=== PATIENT | female | born 1995 | race African-American/Black ===

== ENCOUNTER 2020-02-22 16:50 | Emergency (ER) | payer MEDICAID, SELFPAY ==
[2020-02-22 17:52] LABS: Bilirubin Negative (Negative); Blood, Urine Negative (Negative); Clarity Turbid (Clear); Glucose, Urine (Dipstick) 150 mg/dL (Negative); Ketone, Urine Trace mg/dL (Negative); Leukocyte 75 Leu/uL (Negative); Nitrite Negative (Negative); Protein, Urine (Dipstick) 10 mg/dL (Neg-Trace); RBC/HPF 0-3 HPF (0-3); Specific Gravity, Urine 1.027 (1.002-1.036); Squamous Epithelial 21-50 HPF (0-3); WBC/HPF 0-3 HPF (0-3); pH, Urine 6.5 (5.0-9.0)
[2020-02-22] MEDS ORDERED: Azithromycin 250 MG TAB ONE (17:59)
[2020-02-22] MEDS ORDERED: cefTRIAXone\\ROCEPHIN 250 MG VIAL ONE (17:59)
[2020-02-22] MEDS ORDERED: Lidocaine 1% PF 5 ML VIAL ONE (17:59)
[2020-02-22 18:09] LABS: Bacteria/HPF 2+ HPF (None Seen)
== END 2020-02-22 18:53 | disposition home or self-care (01) ==
LOC: ERS 16:50
DX: O23.41 Unspecified infection of urinary tract in pregnancy, first trimester (principal); O99.511 Diseases of the respiratory system complicating pregnancy, first trimester; J45.909 Unspecified asthma, uncomplicated
CPT/HCPCS: 81003; 81015; 87491; 87591; 96372; J0696

== ENCOUNTER 2021-12-27 20:51 | Emergency (ER) | payer OTHER ==
[2021-12-27] MEDS ORDERED: Fluorescein Opthalmic Strip ONE (21:41)
[2021-12-27] MEDS ORDERED: Proparacaine 0.5% Opth 15 ML BOT ONE ×2 (21:41→23:32)
== END 2021-12-27 23:42 | disposition home or self-care (01) ==
LOC: ERS 20:51
DX: H16.201 Unspecified keratoconjunctivitis, right eye (principal); N89.8 Other specified noninflammatory disorders of vagina
CPT/HCPCS: 99283

== ENCOUNTER 2023-02-11 18:20 | Emergency (ER) | payer OTHER, SELFPAY ==
[2023-02-11] MEDS ORDERED: Ipratropium/Albuterol 3 ML NEB ONE (18:51)
[2023-02-11] MEDS ORDERED: predniSONE 20 MG TAB ONE (18:55)
== END 2023-02-11 19:46 | disposition home or self-care (01) ==
LOC: ERS 18:20
DX: R05.9 Cough, unspecified (principal)
CPT/HCPCS: 71046; 94640; J7512; J7620

== ENCOUNTER 2023-03-20 00:23 | Emergency (ER) | payer SELFPAY ==
[2023-03-20] MEDS ORDERED: Ketorolac Tromethamine 30 MG (1 mL) VIAL ONE (01:23)
== END 2023-03-20 03:33 | disposition home or self-care (01) ==
LOC: ERS 00:23
DX: S83.92XA Sprain of unspecified site of left knee, initial encounter (principal); Z87.891 Personal history of nicotine dependence; X58.XXXA Exposure to other specified factors, initial encounter
CPT/HCPCS: 96372; J1885

== ENCOUNTER 2023-08-09 03:56 | Inpatient (IN) | payer SELFPAY ==
[2023-08-09 04:55] LABS: #Basophils 0.03 10x3/uL (0.0-0.2); %Basophils 0.2 % (0.0-1.0); %Eosinophils 0.8 % (0.0-10.0); %Lymphocytes 28.6 % (21.0-51.0); %Monocytes 10.2 % (0.0-10.0); Hemoglobin 14.9 g/dL (12.0-16.0); Mean Corpuscular HGB CONC 34.7 g/dL (32.0-36.0); Mean Corpuscular Hemoglobin 30.4 pg (27.0-31.0); Mean Corpuscular Volume 87.8 fL (78.0-98.0); Mean Platelet Volume 10.6 fL (7.4-10.4); Platelet Count 334 10x3/uL (130-400); RBC Distribution Width 12.9 % (11.5-14.5)
[2023-08-09 05:09] LABS: ALT (SGPT) 8 U/L (8-55); AST (SGOT) 12 U/L (5-34); Alkaline Phosphatase 53 U/L (40-110); Anion Gap 17 mmol/L (10-20); BUN (Urea Nitrogen) 8 mg/dL (7.0-18.7); Bilirubin, Total 0.8 mg/dL (0.2-1.2); Calc. Creatinine Clearance 0 mL/min (70-130); Calcium 10.1 mg/dL (7.8-10.44); Carbon Dioxide 25 mmol/L (22-29); Chloride 99 mmol/L (98-107); Estimated GFR 71; Globulin 3.9 g/dL (2.4-3.5); Glucose 96 mg/dL (70-105); Potassium 2.5 mmol/L (3.5-5.1); Protein, Total 7.9 g/dL (6.0-8.3); Sodium 138 mmol/L (136-145)
[2023-08-09] MEDS ORDERED: Potassium Chloride 20 MEQ TAB ONE (08:03)
[2023-08-09] MEDS ORDERED: HYDROcodone/Acetaminophen 10/325 mg Tablet ONE (09:07)
[2023-08-09 09:22] LABS: CRP,High Sensitivity (Inhouse) 2.44 mg/dL (< or = 0.5); Magnesium 1.9 mg/dL (1.6-2.6)
[2023-08-09] MEDS ORDERED: Magnesium 2 GM/50 ML BAG (IN WATER) ONE (09:28)
[2023-08-09 09:30] LABS: Troponin I Less than 0.010 ng/mL (< 0.028)
[2023-08-09 10:51] LABS: ALT (SGPT) 6 U/L (8-55); AST (SGOT) 14 U/L (5-34); Albumin 3.8 g/dL (3.5-5.0); Alkaline Phosphatase 51 U/L (40-110); Anion Gap 17 mmol/L (10-20); BUN (Urea Nitrogen) 10 mg/dL (7.0-18.7); Bilirubin, Total 0.6 mg/dL (0.2-1.2); Calc. Creatinine Clearance 0 mL/min (70-130); Calcium 9.6 mg/dL (7.8-10.44); Carbon Dioxide 22 mmol/L (22-29); Chloride 99 mmol/L (98-107); Estimated GFR 92; Globulin 3.8 g/dL (2.4-3.5); Glucose 94 mg/dL (70-105); Phosphorus 4.7 mg/dL (2.3-4.7); Potassium 2.9 mmol/L (3.5-5.1); Protein, Total 7.6 g/dL (6.0-8.3); Sodium 135 mmol/L (136-145)
[2023-08-09 12:29] LABS: Anion Gap 13 mmol/L (10-20); BUN (Urea Nitrogen) 9 mg/dL (7.0-18.7); Calc. Creatinine Clearance 0 mL/min (70-130); Calcium 9.7 mg/dL (7.8-10.44); Carbon Dioxide 30 mmol/L (22-29); Chloride 98 mmol/L (98-107); Estimated GFR 80; Glucose 87 mg/dL (70-105); Sodium 138 mmol/L (136-145)
[2023-08-09] MEDS ORDERED: Lidocaine 1% PF 5 ML VIAL ONE (13:07)
[2023-08-09] MEDS ORDERED: Ondansetron PF 4 MG/2 ML Vial IVP PRN (13:31)
[2023-08-09] MEDS ORDERED: Ondansetron ODT 4 MG TAB PO PRN (13:31)
[2023-08-09] MEDS: Magnesium 2 GM/50 ML(in water) 2 GM in Premix 1 BAG IVPB SCH (15:49)
[2023-08-09 15:53] VITALS: BMI 33.5
[2023-08-09] MEDS: Potassium Chloride 20 MEQ TAB PO SCH (16:19)
[2023-08-09] MEDS: Acetaminophen 325 MG TAB PO PRN (16:20)
[2023-08-09] MEDS: Heparin 5,000 UNITS/ML VIAL SC SCH (16:26)
[2023-08-09] MEDS: Famotidine 20 MG TAB PO SCH (21:03)
[2023-08-10 04:30] LABS: #Basophils 0.03 10x3/uL (0.0-0.2); %Basophils 0.3 % (0.0-1.0); %Lymphocytes 24.1 % (21.0-51.0); %Monocytes 9.3 % (0.0-10.0); %Neutrophils 63.8 % (42.0-75.0); Hematocrit 42.6 % (36.0-47.0); Hemoglobin 14.7 g/dL (12.0-16.0); Mean Corpuscular HGB CONC 34.5 g/dL (32.0-36.0); Mean Corpuscular Hemoglobin 30.8 pg (27.0-31.0); Mean Corpuscular Volume 89.3 fL (78.0-98.0); Mean Platelet Volume 10.1 fL (7.4-10.4); Platelet Count 323 10x3/uL (130-400); Red Blood Cell (RBC) Count 4.77 mill/uL (4.20-5.40)
[2023-08-10 04:47] LABS: Anion Gap 10 mmol/L (10-20); BUN (Urea Nitrogen) 11 mg/dL (7.0-18.7); Calc. Creatinine Clearance 130 mL/min (70-130); Calcium 9.5 mg/dL (7.8-10.44); Carbon Dioxide 27 mmol/L (22-29); Chloride 100 mmol/L (98-107); Estimated GFR 84; Glucose 99 mg/dL (70-105); Potassium 3.3 mmol/L (3.5-5.1); Sodium 134 mmol/L (136-145)
[2023-08-10] MEDS: Potassium Chloride 20 MEQ TAB PO SCH (10:26)
[2023-08-10 13:23] VITALS: BMI 33.5
[2023-08-11 04:42] LABS: Anion Gap 12 mmol/L (10-20); BUN (Urea Nitrogen) 9 mg/dL (7.0-18.7); Calc. Creatinine Clearance 168 mL/min (70-130); Calcium 9.1 mg/dL (7.8-10.44); Carbon Dioxide 22 mmol/L (22-29); Chloride 103 mmol/L (98-107); Estimated GFR 113; Glucose 100 mg/dL (70-105); Potassium 3.4 mmol/L (3.5-5.1); Sodium 134 mmol/L (136-145)
[2023-08-11 08:27] VITALS: TEMP 98
[2023-08-11] MEDS: Potassium Chloride 20 MEQ TAB PO SCH (10:46)
[2023-08-11 12:09] VITALS: BP 97/55
== END 2023-08-11 13:07 | disposition home or self-care (01) | DRG 914 ==
LOC: ERS 03:56 → T4-A 11:03 → OBSVTOIN 08-10 15:33
PROVIDERS: ADMIT Internal Medicine; ATTEND Internal Medicine
PROC: 0HCNXZZ Extirpation of Matter from Left Foot Skin, External Approach (ICD-10-PCS; principal; 2023-08-10)
DX: S91.322A Laceration with foreign body, left foot, initial encounter (principal); W45.8XXA Other foreign body or object entering through skin, initial encounter; E87.6 Hypokalemia; E83.42 Hypomagnesemia; F17.210 Nicotine dependence, cigarettes, uncomplicated; Z79.899 Other long term (current) drug therapy; Z79.01 Long term (current) use of anticoagulants
CPT/HCPCS: 28190; 36415; 80048; 80053; 83605; 83735; 83880; 84100; 84145; 84484; 85025; 86141; 87040; 93005; 96372; 96374; 97139; G0378; J1644; J3475